=== PATIENT | female | born 1960 | race Caucasian/White ===

== ENCOUNTER 2024-07-27 10:22 | Emergency (ER) | payer BC, MEDICAID, MEDICARE ==
[2024-07-27] MEDS: Adenosine 6 MG/2 ML SDV IVPUSH ONE ×2 (10:37→10:46)
[2024-07-27 10:48] VITALS: BP 110/72; PULSE 90
[2024-07-27 10:51] LABS: BASOPHILS ABSOLUTE AUTO 0.06 K/uL (0.00-0.10); BASOPHILS PERCENT AUTO 0.7 % (0.1-1.3); EOSINOPHILS ABSOLUTE AUTO 0.35 K/uL (0.00-0.40); EOSINOPHILS PERCENT AUTO 3.8 % (0.0-5.4); HEMATOCRIT 43.8 % (34.3-46.0); HEMOGLOBIN 14.1 g/dL (11.2-15.5); IMMATURE GRAN PERCENT AUTO 0.2 % (0.0-0.7); LYMPHOCYTES ABSOLUTE AUTO 4.09 K/uL (0.8-3.3); LYMPHOCYTES PERCENT AUTO 44.9 % (11.4-47.7); MEAN CORPUSCULAR HEMOGLOBIN 30.5 pg (31.6-35.5); MEAN CORPUSCULAR HGB CONC 32.2 g/dL (31.6-35.5); MEAN CORPUSCULAR VOLUME 94.6 fL (81.4-99.0); MONOCYTES ABSOLUTE AUTO 0.59 K/uL (0.20-0.90); MONOCYTES PERCENT AUTO 6.5 % (3.3-12.6); NEUTROPHILS ABSOLUTE AUTO 3.99 K/uL (1.0-7.6); NEUTROPHILS PERCENT AUTO 43.9 % (40.0-78.1); PLATELET COUNT,PLT 150 K/uL (130-375); RED BLOOD CELL COUNT 4.63 M/uL (3.77-5.24); WHITE BLOOD CELL COUNT,WBC 9.1 K/uL (3.2-11.0)
[2024-07-27 10:54] LABS: IMMATURE GRAN ABSOLUTE AUTO 0.02 K/uL (0.00-0.23)
[2024-07-27 10:55] LABS: ANION GAP 15.4 mmol/L (5.0-14.0); BLOOD UREA NITROGEN,BUN 16 mg/dL (7-18); CALCIUM 9.5 mg/dL (8.5-10.1); CARBON DIOXIDE,CO2 24 mmol/L (21-32); CHLORIDE,CL 102 mmol/L (100-108); CREATININE 1.3 mg/dL (0.6-1.0); ESTIMATED GFR 46 mL/min (>60); GLUCOSE RANDOM 201 mg/dL (74-106); POTASSIUM,K 3.8 mmol/L (3.6-5.2); SODIUM,NA 141 mmol/L (140-148)
== END 2024-07-27 12:28 | disposition home or self-care (01) ==
LOC: JP.ED 10:22
DX: I47.10 Supraventricular tachycardia, unspecified (principal); E03.9 Hypothyroidism, unspecified; Z90.49 Acquired absence of other specified parts of digestive tract; Z79.890 Hormone replacement therapy; Z79.899 Other long term (current) drug therapy; Z79.51 Long term (current) use of inhaled steroids; Z88.2 Allergy status to sulfonamides
CPT/HCPCS: 36415; 80048; 83735; 84443; 85025; 93005; 96374; 99285; J0153

== ENCOUNTER 2024-09-25 06:31 | Day surgery (SDC) | payer MEDICARE ==
[2024-09-25] MEDS: Sodium Chloride 0.9% 10 ML Syringe FLUSH PRN (07:20)
[2024-09-25 08:26] VITALS: BP 114/65; PULSE 63
== END 2024-09-25 08:31 | disposition home or self-care (01) ==
LOC: JP.SDS 06:31
PROVIDERS: ATTEND Ophthalmology
DX: H25.12 Age-related nuclear cataract, left eye (principal)
CPT/HCPCS: 66984; V2632; 00142-QZ